=== PATIENT | female | born 1935 | race Caucasian/White ===

== ENCOUNTER → 2016-04-06 | Outpatient (CLI) | payer OTHER | LOC: FCPNEURO 21:30 | PROVIDERS: ATTEND Psychiatry & Neurology Sleep Medicine | DX: G47.33 Obstructive sleep apnea (adult) (pediatric) (principal) ==

== ENCOUNTER → 2016-04-28 | Outpatient (CLI) | payer OTHER | LOC: FIMAGING 11:12 | DX: Z12.31 Encounter for screening mammogram for malignant neoplasm of breast (principal); Z85.3 Personal history of malignant neoplasm of breast; Z80.3 Family history of malignant neoplasm of breast | CPT/HCPCS: G0202 ==

== ENCOUNTER → 2016-05-04 | Outpatient (CLI) | payer OTHER | LOC: FIMAGING 12:54 | PROVIDERS: ATTEND Internal Medicine Hematology & Oncology | DX: R92.2 Inconclusive mammogram (principal) ==

== ENCOUNTER → 2016-05-12 | Outpatient (CLI) | payer OTHER ==
[~2016-05-12] MED LIST: GADOBUTROL 10 ML VIAL IVP ONE
[2016-05-12 07:34] LABS: CREATININE 0.7 mg/dL (0.6-1.0); GLOMERULAR FILTRATION RATE > 60
== END ==
LOC: FIMAGING 06:25
PROVIDERS: ATTEND Physician Assistant
DX: N63 Unspecified lump in breast (principal)
CPT/HCPCS: 0159T; A9585; C8908

== ENCOUNTER → 2016-06-16 | Outpatient (CLI) | payer OTHER ==
[~2016-06-16] MED LIST changes: +BUPIVACAINE 0.5% 30 ML SDV ONE; +LIDOCAINE 1% 5 ML SDV ONE; +MIDAZOLAM 2 MG/2 ML VIAL ONE; +NA BICARBONATE 50 MEQ/50 ML VIAL ONE; +NS 1,000 ML IV SCH; +fentaNYL 100 MCG/2 ML INJ ONE
== END ==
LOC: FIMAGING 07:37
PROVIDERS: ATTEND Surgery
PROC: 0HBU3ZX Excision of Left Breast, Percutaneous Approach, Diagnostic (ICD-10-PCS; principal; 2016-06-16)
DX: N60.82 Other benign mammary dysplasias of left breast (principal); N60.12 Diffuse cystic mastopathy of left breast; Z85.3 Personal history of malignant neoplasm of breast
CPT/HCPCS: 19085; 99152; 99153; A9585; J2250; J3010

== ENCOUNTER → 2017-04-04 | Outpatient (CLI) | payer OTHER | LOC: BMCIMAGING 13:21 | PROVIDERS: ATTEND Internal Medicine Hematology & Oncology | DX: Z13.820 Encounter for screening for osteoporosis (principal); M85.852 Other specified disorders of bone density and structure, left thigh ==

== ENCOUNTER → 2017-04-29 | Outpatient (CLI) | payer OTHER | LOC: FIMAGING 12:34 | PROVIDERS: ATTEND Internal Medicine Hematology & Oncology | DX: Z12.31 Encounter for screening mammogram for malignant neoplasm of breast (principal); Z85.3 Personal history of malignant neoplasm of breast; Z80.3 Family history of malignant neoplasm of breast ==

== ENCOUNTER → 2018-05-01 | Outpatient (CLI) | payer OTHER | LOC: FIMAGING 09:25 | PROVIDERS: ATTEND Physician Assistant | DX: Z12.31 Encounter for screening mammogram for malignant neoplasm of breast (principal); Z85.3 Personal history of malignant neoplasm of breast; Z80.3 Family history of malignant neoplasm of breast ==